=== PATIENT | male | born 1970 | race African-American/Black ===

== ENCOUNTER 2020-08-12 10:37 | Outpatient (CLI) | payer OTHER, SELFPAY ==
--- NOTE | ~2020-08-12 | XR_ITS ---
EXAMINATION: XR cystogram DATE: 08/12/2020 11:35 INDICATION: Prostate cancer, 2.5 week postop TECHNIQUE: Water-soluble contrast was gravity-infused through the patient's Martinez catheter. Multiple fluoroscopic images were obtained. Fluoroscopy exposure time was 0.9 minutes. The DAP for this proced ure was 37.309 Gycm2. Conventional supine radiographs are also obtained. COMPARISON: None. FINDINGS: Fluoroscopic and conventional supine radiographs demonstrate extravasation of contrast near the base of the bladder. The bladder contour is normal. IMPRESSION: 1. Contrast leak near the base of the bladder. Reviewed, dictated and finalized at location A.
== END 2020-08-12 10:38 | disposition home or self-care (01) ==
PROVIDERS: Visit Provider Urology
DX: C61 Malignant neoplasm of prostate (principal)
CPT/HCPCS: 51600; 74430; Q9967

== ENCOUNTER 2020-08-20 09:12 | Outpatient (CLI) | payer OTHER, SELFPAY ==
--- NOTE | ~2020-08-20 | XR_ITS ---
EXAMINATION: CYSTOGRAM DATE: 08/20/2020 09:57 INDICATION: Follow-up bladder leak post prostatectomy. TECHNIQUE: Initial jig box operator radiograph of the pelvis was performed. There was retrograde administration of Omnipaque 350 mixed with saline contrast into patient's existing Martinez catheter. Fluoroscopic salma ges of the pelvis were obtained. A post-void image was also performed. A total of 1 jig box operator radiograph and 14 fluoroscopic spot images were recorded. Fluoroscopy exposure time was 0.5 minutes. Total DAP w as 21.6 mGycm^2 FINDINGS: There is a persistent bladder leak with extraluminal contrast extravasation originating at the left p osterior site of the bladder outlet. No bladder wall mucosal irregularities. IMPRESSION: Persistent bladder leak. Reviewed, dictated and finalized at location A. IMPRESSION: Persistent bladder leak.
== END 2020-08-20 09:13 | disposition home or self-care (01) ==
PROVIDERS: Visit Provider Urology
DX: C61 Malignant neoplasm of prostate (principal)
CPT/HCPCS: 51600; 74430; Q9967

== ENCOUNTER 2020-08-30 09:08 | Outpatient (CLI) | payer OTHER, SELFPAY ==
--- NOTE | ~2020-08-30 | XR_ITS ---
EXAMINATION: CYSTOGRAM DATE: 08/30/2020 09:47 INDICATION: Bladder neck injury post prostatectomy TECHNIQUE: Initial surety bond agent thorascopic image of the lower pelvis was obtained. There was retrograde ad ministration of Omnipaque 350 mixed with saline contrast into patient's existing Martinez catheter. Martínez tional fluoroscopic images of the pelvis were obtained in varying obliquities. A post-void image was also performed. Fluoroscopy exposure time was 0.9 minutes. A total of 11 fluoroscopic images were rec orded. Total DAP was 7.124 mGycm^2 FINDINGS/IMPRESSION: Persistent bladder leak with extraluminal extravasation of contrast again originating at the left norma e of the bladder outlet. Reviewed, dictated and finalized at location A.
== END 2020-08-30 09:09 | disposition home or self-care (01) ==
LOC: ANHIMG 09:10
PROVIDERS: Visit Provider Urology
DX: S37.20XA Unspecified injury of bladder, initial encounter (principal); X58.XXXA Exposure to other specified factors, initial encounter
CPT/HCPCS: 51600; 74430; Q9967

== ENCOUNTER 2020-09-13 10:16 | Outpatient (CLI) | payer OTHER, SELFPAY ==
--- NOTE | ~2020-09-13 | XR_ITS ---
EXAMINATION: CYSTOGRAM DATE: 09/13/2020 10:47 INDICATION: Injury to bladder neck. TECHNIQUE: Initial rn wellness radiograph of the pelvis was performed. There was retrograde administration of Omnipaque 350 mixed with saline contrast into patient's existing clark catheter. Fluoroscopic salma ges of the pelvis were obtained. A post-void image was also performed. FINDINGS: There is extravasation of contrast into the left pelvis originating from the bladder neck. Clark catheter present in the bladder. No intraluminal filling defects are identified. IMPRESSION: 1. Focal left-sided extravasation of contrast at the bladder neck. Reviewed, dictated and finalized at location A.
== END 2020-09-13 10:17 | disposition home or self-care (01) ==
LOC: ANHIMG 10:18
PROVIDERS: Visit Provider Urology
DX: S37.20XA Unspecified injury of bladder, initial encounter (principal)
CPT/HCPCS: 51600; 74430; Q9967